=== PATIENT | female | born 1990 | race African-American/Black ===

== ENCOUNTER 2021-09-12 09:37 | Emergency (ER) | payer MEDICAID ==
[~2021-09-12] VITALS: Ht 167.6 cm; Wt 85.0 kg
[2021-09-12] MEDS ORDERED: NAPR-681 PO (13:00)
[2021-09-12] MEDS ORDERED: CYCL5TAB PO (13:00)
[2021-09-12 13:54] VITALS: BP 127/85
== END 2021-09-12 13:55 | disposition home or self-care (01) ==
LOC: ER 10:05
DX: S39.012A Strain of muscle, fascia and tendon of lower back, initial encounter (principal); M54.6 Pain in thoracic spine; M54.2 Cervicalgia; R03.0 Elevated blood-pressure reading, without diagnosis of hypertension; V49.09XA Driver injured in collision with other motor vehicles in nontraffic accident, initial encounter; Y93.89 Activity, other specified; Y92.488 Other paved roadways as the place of occurrence of the external cause
CPT/HCPCS: 99282

== ENCOUNTER 2023-02-16 10:46 | Emergency (ER) | payer MEDICAID, OTHER ==
[~2023-02-16] VITALS: Ht 170.2 cm; Wt 91.0 kg
[~2023-02-16 10:46] MED LIST: CYCL5TAB PO; NAPR-681 PO
[2023-02-16 10:48] VITALS: PULSE 103; RESP 16
[2023-02-16 10:56] VITALS: BP 137/77; TEMP 98.6; O2SAT 99
[2023-02-16] MEDS ORDERED: LIDOCAINE HCL/PF 1% 10 MG/ML 5ML VIAL INFIL ONE (11:15)
[2023-02-16] MEDS ORDERED: BACITRACIN ZINC OINT UDPKT TOP ONE (11:15)
[2023-02-16] MEDS: BACITRACIN ZINC OINT UDPKT TOP NR (13:15)
[2023-02-16] MEDS: LIDOCAINE HCL/PF 1% 10 MG/ML 5ML VIAL INFIL NR (13:15)
[2023-02-16] MEDS ORDERED: SULF1TAB48 MT (13:32)
[2023-02-16] MEDS ORDERED: CEPH500T MT (13:32)
== END 2023-02-16 16:35 | disposition home or self-care (01) ==
LOC: ER 10:46
DX: L02.31 Cutaneous abscess of buttock (principal)
CPT/HCPCS: 10060; 99283; J3490; Z7610 ×4

== ENCOUNTER 2023-02-18 12:27 | Emergency (ER) | payer OTHER ==
[~2023-02-18] VITALS: Ht 162.6 cm; Wt 82.0 kg
[~2023-02-18 12:27] MED LIST changes: +CEPH500T MT; +SULF1TAB48 MT
[2023-02-18 12:53] VITALS: BP 110/76; O2SAT 99
[2023-02-18 15:55] VITALS: PULSE 74; RESP 12; TEMP 97.9
== END 2023-02-18 15:40 | disposition home or self-care (01) ==
LOC: ER 12:27
DX: L02.31 Cutaneous abscess of buttock (principal); Z48.00 Encounter for change or removal of nonsurgical wound dressing
CPT/HCPCS: 99281